=== PATIENT | male | born 1950 | race African-American/Black ===

== ENCOUNTER 2018-04-09 02:22 | Emergency (ER) | payer MEDICARE, OTHER ==
[2018-04-09] MEDS ORDERED: PREDNISONE 20 MG TABLET PO ONE (03:41)
--- NOTE | 2018-04-09 03:44 | ER Document Report ---
ED Extremity Problem, Upper - General Chief Complaint: Numbness of Arm Stated Complaint: ARM NUMBNESS Time Seen by Provider: 04/09/18 02:55 Notes: Patient is a 67-year-old male who comes emergency department for chief complaint of shooting pain in his left arm, he states the pain starts around his elbow and shoots into his fourth and fifth digits, he states this is intermittent, he states he is doing weed eating and yard work during the day and then afterwards it tends to bother him for a while. Symptoms been going on for over a week. He also states that he broke out into a rash on the same arm in the forearm area that is itchy. He reports generalized arm soreness as well. He denies specific chest pain, shortness of breath, nausea or vomiting. He denies injury. He denies headache. He states his only past medical history is BPH which he takes medication for, denies any other medications. TRAVEL OUTSIDE OF THE [place] IN LAST 30 DAYS: No - Related Data Allergies/Adverse Reactions: No Known Allergies Allergy (Verified 11/11/14 14:23) Past Medical History - General Information source: Patient - Social History Smoking Status: Never Smoker Frequency of alcohol use: None Drug Abuse: None Lives with: Family Family History: CAD - Past Medical History Cardiac Medical History: Reports: Hx Hypercholesterolemia Renal/ Medical History: Reports: Hx Benign Prostatic Hyperplasia. Denies: Hx Peritoneal Dialysis Surgical Hx: Negative - Immunizations Hx Diphtheria, Pertussis, Tetanus Vaccination: Yes Review of Systems - Review of Systems Constitutional: No symptoms reported EENT: No symptoms reported Cardiovascular: No symptoms reported Respiratory: No symptoms reported Gastrointestinal: No symptoms reported Genitourinary: No symptoms reported Male Genitourinary: No symptoms reported Musculoskeletal: See HPI Skin: See HPI Hematologic/Lymphatic: No symptoms reported Neurological/Psychological: No symptoms reported Physical Exam - Vital signs Vitals: Temp Pulse Resp BP Pulse Ox 97.7 F 47 L 16 160/72 H 99 04/09/18 02:28 04/09/18 02:28 04/09/18 02:28 04/09/18 02:28 04/09/18 02:28 - Notes Notes: GENERAL: Alert, interacts well. No acute distress. HEAD: Normocephalic, atraumatic. EYES: Pupils equal, round, and reactive to light. Extraocular movements intact. ENT: Oral mucosa moist, tongue midline. NECK: Full range of motion. Supple. Trachea midline. LUNGS: Clear to auscultation bilaterally, no wheezes, rales, or rhonchi. No respiratory distress. HEART: Regular rate and rhythm. No murmur ABDOMEN: Soft, non-tender. Non-distended. Bowel sounds present in all 4 quadrants. EXTREMITIES: Left forearm with faint areas of excoriation and erythema with questionable old resolved vesicles and some dry skin. No erythema, induration, pustules, overt vesicles, bulla, or swelling. Sensation, strength, range of motion in the arm unremarkable. Mild discomfort with palpation over the cubital tunnel and proximal left forearm, otherwise unremarkable. BACK: no cervical, thoracic, lumbar midline tenderness. No saddle anesthesia, normal distal neurovascular exam. NEUROLOGICAL: Alert and oriented x3. Normal speech. [cranial nerves II through XII grossly intact]. PSYCH: Normal affect, normal mood. SKIN: Warm, dry, normal turgor. No rashes or lesions noted. Course - Re-evaluation Re-evalutation: Patient has a normal neurological exam. No chest pain. Patient has area over the arm that suggests ulnar nerve discomfort, this is actually reproducible by pressing on the area, symptoms are only in the fourth and fifth digits which is consistent with ulnar nerve/cubital tunnel syndrome. Patient also has some very mild rash consistent with atopic dermatitis but does not appear to be poison aleksandra at this time. No evidence of infection. I discussed with patient, because of left arm pain EKG was performed but after this patient declined additional workup. EKG with no change from prior. I feel this is appropriate based on his very specific peripheral symptoms. Patient will be placed on a short steroid course, antihistamine, discussed primary care follow-up, return precautions, patient and his son state understanding and agreement with plan. - Vital Signs Vital signs: Temp Pulse Resp BP Pulse Ox 97.7 F 49 L 18 131/65 H 99 04/09/18 02:28 04/09/18 04:31 04/09/18 04:31 04/09/18 04:31 04/09/18 04:31 Discharge - Discharge Clinical Impression: Left arm pain, Skin rash Condition: Stable Disposition: HOME, SELF-CARE Additional Instructions: Your EKG is unchanged. Your symptoms and examination are consistent with pain in the ulnar nerve from something called cubital tunnel syndrome. Your rash appears to be a contact rash of the eczema type called contact dermatitis. I recommend the prednisone prescription, take the Zyrtec as prescribed for the next week, follow-up with primary care for additional evaluation and treatment of your arm. Return for any concerning or worsening symptoms including spreading of the rash, pain in your chest, difficulty breathing, loss of sensation in your arm/hand, swelling of the hand/arm, or any other concerning worsening symptoms. Prescriptions: Cetirizine HCl [Zyrtec 10 mg Tablet] 1 tab PO DAILY #30 tablet Prednisone [Deltasone 10 mg Tablet] 10 mg PO ASDIR PRN #21 tablet PRN Reason: Forms: Return to Work Referrals: CARLOS ALBERTO ACUÑA, [employer] W[employer]FFER [Primary Care Provider] - Follow up as needed
[2018-04-09 04:37] VITALS: BP 131/65
--- NOTE | 2018-04-09 07:49 | EKG REPORT ---
SEVERITY:- OTHERWISE NORMAL ECG - SINUS BRADYCARDIA : Confirmed by: Mani Sanon MD 09-Apr-2018 07:48:43
== END 2018-04-09 04:31 | disposition home or self-care (01) ==
LOC: ER 02:22
DX: M79.602 Pain in left arm (principal); R21 Rash and other nonspecific skin eruption; R20.0 Anesthesia of skin
CPT/HCPCS: 93005; 99283; 93010; A9270; J7512

== ENCOUNTER 2018-11-20 09:24 | Emergency (ER) | payer MEDICARE, OTHER ==
--- NOTE | 2018-11-20 10:19 | ER Document Report ---
ED Medical Screen (RME) - General Chief Complaint: Chest Pain Stated Complaint: CHEST PAIN Time Seen by Provider: 11/20/18 10:13 Primary Care Provider: CARLOS ALBERTO ACUÑA NP [Primary Care Provider] - Follow up as needed Mode of Arrival: Ambulatory Information source: Patient Notes: This is a 68-year-old man with a history of BPH who presents to the emergency room with some sharp chest wall pain for the past 2 days. 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 He does also state he has had a dull retrosternal nonradiating chest pain as well. TRAVEL OUTSIDE OF THE [place] IN LAST 30 DAYS: No - Related Data Allergies/Adverse Reactions: No Known Allergies Allergy (Verified 11/20/18 09:25) Past Medical History - Social History Chew tobacco use (# tins/day): No Frequency of alcohol use: None Drug Abuse: None - Past Medical History Cardiac Medical History: Reports: Hx Hypercholesterolemia Renal/ Medical History: Reports: Hx Benign Prostatic Hyperplasia. Denies: Hx Peritoneal Dialysis - Immunizations Hx Diphtheria, Pertussis, Tetanus Vaccination: Yes History of Influenza Vaccine for 07/2017 - 12/2017 Season: No Physical Exam - Vital signs Vitals: Temp Pulse Resp BP Pulse Ox 97.7 F 50 L 18 148/58 H 100 11/20/18 09:49 11/20/18 09:49 11/20/18 09:49 11/20/18 09:49 11/20/18 09:49 Course - Vital Signs Vital signs: Temp Pulse Resp BP Pulse Ox 98.4 F 46 L 20 117/83 100 11/20/18 09:56 11/20/18 09:57 11/20/18 09:56 11/20/18 09:56 11/20/18 09:56 Doctor's Discharge - Discharge Referrals: CARLOS ALBERTO ACUÑA NP [Primary Care Provider] - Follow up as needed
[2018-11-20 10:40] LABS: ABSOLUTE EOSINOPHILS # (AUTO) 0.1 10^3/uL (0.0-0.6); ABSOLUTE MONOCYTES (AUTO) 0.3 10^3/uL (0.1-1.4); ABSOLUTE NEUT (AUTO) 1.6 10^3/uL (1.7-8.2); BASOPHILS % (AUTO) 0.6 % (0-2); EOSINOPHILS % (AUTO) 3.9 % (0-6); HEMATOCRIT 46.1 % (37.9-51.0); HEMOGLOBIN 15.4 g/dL (13.5-17.0); LYMPHOCYTES % (AUTO) 33.6 % (13-45); MEAN CORPUSCULAR HEMOGLOBIN 27.6 pg (27.0-33.4); MEAN CORPUSCULAR HGB CONC 33.5 g/dL (32.0-36.0); MEAN CORPUSCULAR VOLUME 83 fl (80-97); MONOCYTES % (AUTO) 8.7 % (3-13); PLATELET COUNT 147 10^3/uL (150-450); RED BLOOD COUNT 5.59 10^6/uL (4.35-5.55); RED CELL DISTRIBUTION WIDTH 14.7 % (11.5-14.0); SEGMENTED NEUTROPHILS % (AUTO) 53.2 % (42-78); TOTAL CELLS COUNTED % (AUTO) 100 %; WHITE BLOOD COUNT 3.1 10^3/uL (4.0-10.5)
[2018-11-20] MEDS ORDERED: ASPIRIN 81 MG TABLET, CHEWABLE PO ONE (10:48)
--- NOTE | 2018-11-20 10:48 | ER Document Report ---
ED Cardiac - General Chief Complaint: Chest Pain Stated Complaint: CHEST PAIN Time Seen by Provider: 11/20/18 10:13 Primary Care Provider: CARLOS ALBERTO ACUÑA NP [Primary Care Provider] - Follow up as needed Mode of Arrival: Ambulatory TRAVEL OUTSIDE OF THE [place] IN LAST 30 DAYS: No - HPI Notes: Patient is a 68-year-old male that presents to the emergency department for chief complaint of chest pain. Patient reports intermittent chest pain over the last 3 days. He states it is sharp and substernal. The pain is nonradiating. He states it last for 2-3 minutes at a time and then completely resolves. Currently he is not experiencing this pain. He denies any associated shortness of breath, palpitations, diaphoresis, nausea or vomiting. He does also state that he has a pain on his left side that is intermittent as well. The left side pain is dull and nonradiating. He denies any aggravating or relieving factors to any of his pain. He denies ever having a stress test or history of cardiac disease. He denies syncope and lightheadedness. Past Medical History: BPH Past Surgical History: Negative Social History: Denies drugs alcohol and tobacco Family History: Reviewed and noncontributory for presenting illness Allergies: Reviewed, see documented allergy list. REVIEW OF SYSTEMS: CONSTITUTIONAL : No fever No chills No diaphoresis No recent illness EENT: No vision changes No congestion No sore throat CARDIOVASCULAR: chest pain No palpitations RESPIRATORY: No shortness of breath No cough No difficulty breathing GASTROINTESTINAL: abdominal pain No nausea No vomiting No diarrhea GENITOURINARY: No dysuria No hematuria No difficulty urinating MUSCULOSKELETAL: No back pain No leg pain No arm pain SKIN: No rashes No lesions LYMPHATIC: No swollen, enlarged glands. NEUROLOGICAL: No lightheadedness No headache No weakness No paresthesias PSYCHIATRIC: No anxiety No depression PHYSICAL EXAMINATION: Vital signs reviewed, nursing noted reviewed. GENERAL: Well-appearing, well-nourished and in no acute distress. HEAD: Atraumatic, normocephalic. EYES: Eyes appear normal, extraocular movements intact, sclera anicteric, conjunctiva are normal. ENT: nares patent, oropharynx clear without exudates. Moist mucous membranes. NECK: Normal range of motion, supple without lymphadenopathy LUNGS: Breath sounds clear to auscultation bilaterally and equal. No wheezes rales or rhonchi. HEART: Regular rate and rhythm without murmurs, +2/4 bilateral radial and DP pulses ABDOMEN: Protuberant, soft, nontender, normoactive bowel sounds. No rebound, guarding, or rigidity. No masses appreciated. EXTREMITIES: Nontender, good range of motion, no pitting or edema. NEUROLOGICAL: No focal neurological deficits. Moves all extremities spontaneously Motor and sensory grossly intact on exam. PSYCH: Normal mood, normal affect. SKIN: Warm, Dry, normal turgor, no rashes or lesions noted on exposed skin - Related Data Allergies/Adverse Reactions: No Known Allergies Allergy (Verified 11/20/18 09:25) Past Medical History - General Information source: Patient - Social History Smoking Status: Never Smoker Chew tobacco use (# tins/day): No Frequency of alcohol use: None Drug Abuse: None Family History: CAD Patient has suicidal ideation: No Patient has homicidal ideation: No - Past Medical History Cardiac Medical History: Reports: Hx Hypercholesterolemia Renal/ Medical History: Reports: Hx Benign Prostatic Hyperplasia. Denies: Hx Peritoneal Dialysis - Immunizations Hx Diphtheria, Pertussis, Tetanus Vaccination: Yes Physical Exam - Vital signs Vitals: Temp Pulse Resp BP Pulse Ox 97.7 F 50 L 18 148/58 H 100 11/20/18 09:49 11/20/18 09:49 11/20/18 09:49 11/20/18 09:49 11/20/18 09:49 Course - Re-evaluation Re-evalutation: 11/20/18 10:47 Vitals reviewed. Nursing notes reviewed. Patient is currently asymptomatic. He states his pain has been very intermittent. His EKG shows no acute ischemia and is unchanged from prior. 11/20/18 11:24 Patient's lab work shows a WBC count of 3.1. He has no other Sirs criteria and is not meeting sepsis criteria. His chest x-ray does show a left lower lobe pneumonia which is likely causing his discomfort on his left side. Patient's troponin is negative. His heart score is 3 and his chest pain symptoms are atypical. I do not currently suspect ACS. Patient likely has having discomfort from the pneumonia. He will be started on azithromycin. He was counseled on close follow-up with primary care and return precautions to the ER. He is in agreement with this plan and stable at discharge. Laboratory 11/20/18 11/20/18 11/20/18 10:24 10:24 10:24 WBC 3.1 L RBC 5.59 H Hgb 15.4 Hct 46.1 MCV 83 MCH 27.6 MCHC 33.5 RDW 14.7 H Plt Count 147 L Seg Neutrophils % 53.2 Lymphocytes % 33.6 Monocytes % 8.7 Eosinophils % 3.9 Basophils % 0.6 Absolute Neutrophils 1.6 L Absolute Lymphocytes 1.0 Absolute Monocytes 0.3 Absolute Eosinophils 0.1 Absolute Basophils 0.0 Sodium 138.9 Potassium 5.0 Chloride 105 Carbon Dioxide 29 Anion Gap 5 BUN 23 H Creatinine 1.11 Est GFR ( Amer) > 60 Est GFR (Non-Af Amer) > 60 Glucose 111 H Calcium 9.1 Total Bilirubin 1.0 Direct Bilirubin 0.2 Neonat Total Bilirubin Not Reportable Neonat Direct Bilirubin Not Reportable Neonat Indirect Bili Not Reportable AST 17 ALT 26 Alkaline Phosphatase 43 Creatine Kinase 95 CK-MB (CK-2) 1.35 Troponin I < 0.012 Total Protein 6.7 Albumin 4.0 Chest X-Ray 11/20/18 10:18 IMPRESSION: Left lower lobe airspace disease with small effusion, likely pneumonia and reactive parapneumonic effusion. Recommend follow-up till resolution. - Vital Signs Vital signs: Temp Pulse Resp BP Pulse Ox 98.4 F 46 L 16 134/70 H 99 11/20/18 09:56 11/20/18 09:57 11/20/18 11:01 11/20/18 11:01 11/20/18 11:01 - Laboratory Result Diagrams: 11/20/18 10:24 11/20/18 10:24 Laboratory results interpreted by me: 11/20/18 11/20/18 10:24 10:24 WBC 3.1 L RBC 5.59 H RDW 14.7 H Plt Count 147 L Absolute Neutrophils 1.6 L BUN 23 H Glucose 111 H - EKG Interpretation by Me Additional EKG results interpreted by me: 11/20/18 10:48 Interpreted by myself [id number]: Sinus bradycardia, rate 40, normal axis, no ectopy, no STEMI, no change from 04/09/18 Discharge - Discharge Clinical Impression: Pneumonia Qualifiers: Pneumonia type: due to unspecified organism Laterality: left Lung location: lower lobe of lung Qualified Code(s): J18.1 - Lobar pneumonia, unspecified organism Chest pain Qualifiers: Chest pain type: unspecified Qualified Code(s): R07.9 - Chest pain, unspecified Condition: Stable Disposition: HOME, SELF-CARE Instructions: Chest Pain of Unclear Cause ([facility]), Pneumonia ([facility]) Additional Instructions: Please return to the emergency department if you have any worsening, or concern of your symptoms. Please return to the emergency department if you develop chest pain, difficulty breathing, severe abdominal pain, or ongoing vomiting. Please follow-up with your primary care physician in 2-3 days and any other recommended physicians. If prescribed, take all medications as directed. If you have any questions or concerns do not hesitate to return the emergency de partment for evaluation. [] Prescriptions: Azithromycin [Zithromax 250 mg Tablet] 250 mg PO DAILY #4 tablet Referrals: CARLOS ALBERTO ACUÑA, COMMUNITY [employer]REACH MANAGER [Primary Care Provider] - Follow up as needed
[2018-11-20 10:56] LABS: ALANINE AMINOTRANSFERASE 26 U/L (21-72); ALKALINE PHOSPHATASE 43 U/L (38-126); ASPARTATE AMINO TRANSFERASE 17 U/L (17-59); BILIRUBIN,DIRECT 0.2 mg/dL (0.0-0.4); BLOOD UREA NITROGEN 23 mg/dL (7-20); CALCIUM 9.1 mg/dL (8.4-10.2); CREATINE KINASE 95 U/L (55-170); GLUCOSE 111 mg/dL (75-110); TOTAL PROTEIN 6.7 g/dL (6.3-8.2)
[2018-11-20 11:02] LABS: ANION GAP 5 (5-19); CARBON DIOXIDE 29 mmol/L (22-30); CHLORIDE 105 mmol/L (98-107); SODIUM 138.9 mmol/L (137-145)
[2018-11-20 11:07] LABS: CREATINE KINASE MB 1.35 ng/mL (<4.55)
[2018-11-20 11:08] LABS: TROPONIN I < 0.012 ng/mL
--- NOTE | 2018-11-20 11:10 | RADIOLOGY REPORT (SQ) ---
EXAM DESCRIPTION: CHEST 2 VIEWS COMPLETED DATE/TIME: 11/20/2018 10:58 am REASON FOR STUDY: chest wall pain COMPARISON: 11/11/2014 EXAM PARAMETERS: NUMBER OF VIEWS: two views TECHNIQUE: Digital Frontal and Lateral radiographic views of the chest acquired. RADIATION DOSE: NA LIMITATIONS: none FINDINGS: LUNGS AND PLEURA: Left lower lobe patchy airspace disease with small left pleural effusion . No pneumothorax. Unremarkable right hemithorax. MEDIASTINUM AND HILAR STRUCTURES: No masses or contour abnormalities. HEART AND VASCULAR STRUCTURES: Normal heart size. Atherosclerotic aorta. BONES: No acute findings. HARDWARE: None in the chest. OTHER: No other significant finding. IMPRESSION: Left lower lobe airspace disease with small effusion, likely pneumonia and reactive para pneumonic effusion. Recommend follow-up till resolution. TECHNICAL DOCUMENTATION: JOB ID: [id number]- All Rights Reserved Reading location - IP/workstation name: [email or web address]
[2018-11-20] MEDS ORDERED: AZITHROMYCIN 250 MG TABLET PO ONE (11:23)
[2018-11-20 12:06] VITALS: BP 135/68
--- NOTE | 2018-11-20 19:45 | EKG REPORT ---
SEVERITY:- OTHERWISE NORMAL ECG - SINUS BRADYCARDIA BORDERLINE LEFT AXIS DEVIATION : Confirmed by: Elli Mcintosh MD 20-Nov-2018 19:44:50
== END 2018-11-20 12:13 | disposition home or self-care (01) ==
LOC: ER 09:24
DX: J18.1 Lobar pneumonia, unspecified organism (principal); R07.9 Chest pain, unspecified; E78.00 Pure hypercholesterolemia, unspecified; N40.0 Benign prostatic hyperplasia without lower urinary tract symptoms
CPT/HCPCS: 93005; 99285; 36415; 82553; 82550; 85025; 80053; 84484; 71046; 93010; A9270 ×2